=== PATIENT | male | born 1960 | race Caucasian/White ===

== ENCOUNTER 2021-04-13 19:51 | Inpatient (IN) | payer OTHER ==
[2021-04-13] MEDS ORDERED: DIPH,PERTUS(ACELL)TETVAC-LF 0.5 ML VIAL IM ONE (19:56)
[2021-04-13 20:10] LABS: Basophils % (A) 0 %; Eosinophils # (A) 0.1 k/uL (0-0.7); Eosinophils % (A) 2 %; HCT 43.7 % (39.0-53.0); HGB 15.3 gm/dL (13.0-17.5); Lymphocytes # (A) 1.5 k/uL (1.0-4.8); Lymphocytes % (A) 23 %; MCH 32.9 pg (25.0-35.0); MCHC 35.1 g/dL (31.0-37.0); MCV 93.7 fL (80.0-100.0); Mean Platelet Volume 7.1; Monocytes # (A) 0.3 k/uL (0-1.0); Monocytes % (A) 5 %; Neutrophils # (A) 4.4 k/uL (1.3-7.7); Neutrophils % (A) 68 %; Platelet Count 157 k/uL (150-450); RBC 4.66 m/uL (4.30-5.90); RDW 13.3 % (11.5-15.5); WBC 6.6 k/uL (3.8-10.6)
[2021-04-13 20:13] LABS: Glucose,Whole Blood 169 mg/dL (75-99)
[2021-04-13] MEDS ORDERED: HYDROmorphone 1 MG/ML 1 ML SYRINGE IVP STA (20:13)
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
[2021-04-13 20:23] LABS: ALT 29 U/L (4-49); AST 47 U/L (17-59); African American GFR (CKD) >90 (>60 ml/min/1.73 sqM); Alcohol <10 mg/dL; Alkaline Phosphatase 115 U/L (38-126); Anion Gap 10 mmol/L; Blood Urea Nitrogen 20 mg/dL (9-20); Calcium 8.9 mg/dL (8.4-10.2); Carbon Dioxide 25 mmol/L (22-30); Chloride 107 mmol/L (98-107); Glucose 179 mg/dL (74-99); Non-African American GFR(CKD) >90 (>60 ml/min/1.73 sqM); Potassium 4.1 mmol/L (3.5-5.1); Sodium 142 mmol/L (137-145); Total Bilirubin 1.5 mg/dL (0.2-1.3); Total Protein 6.6 g/dL (6.3-8.2)
[2021-04-13 20:31] LABS: INR 0.9 (<1.2); Prothrombin Time 10.3 sec (9.0-12.0)
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
[2021-04-13 21:06] LABS: Partial Thromboplastin Time 21.9 sec (22.0-30.0)
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
[2021-04-13] MEDS ORDERED: SODIUM CHLORIDE 0.9% 1,000 ML IV STA (21:34)
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
[2021-04-13] MEDS ORDERED: LIDOCAINE 1% INJ 10MG/ML (20 ML MDV) SQ ONE (23:34)
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
[2021-04-14] MEDS ORDERED: NALOXONE 0.4 MG/ML 1 ML VIAL IV PRN ×2 (00:03→00:45)
[2021-04-14] MEDS ORDERED: ONDANSETRON 4 MG/2 ML VIAL IVP PRN (00:03)
[2021-04-14] MEDS: SODIUM CHLORIDE 0.9% 1,000 ML IV SCH ×3 (02:00→20:51)
[2021-04-14] MEDS: HYDROmorphone 1 MG/ML 1 ML SYRINGE IVP PRN ×4 (02:00→23:54)
[2021-04-14 03:25] LABS: Appearance,Urine Clear (Clear); Bacteria,Urine Rare /hpf; Bilirubin,Urine Negative (Negative); Blood,Urine Small (Negative); Color,Urine Yellow; Glucose,Urine (UA) 1+ (Negative); Leukocyte Esterase,Urine Negative (Negative); Nitrite,Urine Negative (Negative); PH, Urine 5.5 (5.0-8.0); Protein,Urine 2+ (Negative); RBC,Urine 2 /hpf (0-5); Urobilinogen,Urine <2.0 mg/dL (<2.0); WBC,Urine 1 /hpf (0-5)
[2021-04-14 03:26] LABS: Amphetamine Screen,Urine Not Detected (NotDetected); Barbiturate Screen,Urine Not Detected (NotDetected); Benzodiazepines Screen,Urine Not Detected (NotDetected); Cocaine Screen,Urine Not Detected (NotDetected); Methadone Screen, Urine Not Detected (NotDetected); Opiate Screen,Urine Detected (NotDetected); Oxycodone Screen, Urine Not Detected (NotDetected); Phencyclidine Screen,Urine Not Detected (NotDetected); Tricyclic Antidepressant,Urine Not Detected (NotDetected); Urn Cannabinoid Scrn Not Detected (NotDetected)
[2021-04-14 04:00] LABS: Specific Gravity,Urine >1.050 (1.001-1.035)
[2021-04-14 04:09] LABS: Ketones,Urine 2+ (Negative)
[2021-04-14 06:31] LABS: Glucose,Whole Blood 294 mg/dL (75-99)
[2021-04-14 07:10] LABS: Basophils % (A) 0 %; Eosinophils % (A) 0 %; HGB 14.1 gm/dL (13.0-17.5); Lymphocytes # (A) 0.4 k/uL (1.0-4.8); Lymphocytes % (A) 5 %; MCH 32.2 pg (25.0-35.0); MCHC 33.6 g/dL (31.0-37.0); MCV 95.9 fL (80.0-100.0); Mean Platelet Volume 7.1; Monocytes # (A) 0.4 k/uL (0-1.0); Monocytes % (A) 5 %; Neutrophils % (A) 90 %; Platelet Count 121 k/uL (150-450); RBC 4.38 m/uL (4.30-5.90); RDW 13.5 % (11.5-15.5); WBC 8.9 k/uL (3.8-10.6)
[2021-04-14 07:20] LABS: ALT 28 U/L (4-49); AST 42 U/L (17-59); African American GFR (CKD) >90 (>60 ml/min/1.73 sqM); Albumin 3.5 g/dL (3.5-5.0); Alkaline Phosphatase 90 U/L (38-126); Anion Gap 9 mmol/L; Blood Urea Nitrogen 18 mg/dL (9-20); Calcium 8.4 mg/dL (8.4-10.2); Carbon Dioxide 24 mmol/L (22-30); Chloride 108 mmol/L (98-107); Glucose 245 mg/dL (74-99); Lipase 134 U/L (23-300); Non-African American GFR(CKD) >90 (>60 ml/min/1.73 sqM); Potassium 4.4 mmol/L (3.5-5.1); Sodium 141 mmol/L (137-145); Total Bilirubin 1.8 mg/dL (0.2-1.3); Total Protein 6.1 g/dL (6.3-8.2)
[2021-04-14] MEDS ORDERED: PANTOPRAZOLE 40 MG/10 ML VIAL IV SCH (09:00)
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
[2021-04-14] MEDS ORDERED: IBUPROFEN 600 MG TAB PO PRN (09:18)
[2021-04-14] MEDS: METOPROLOL SUCCINATE (ER) 25 MG TAB.ER.24H PO SCH ×2 (09:21→20:50)
[2021-04-14] MEDS: lisinopriL 10 MG TAB PO SCH ×2 (09:21→20:50)
[2021-04-14] MEDS: HEPARIN SODIUM,PORCINE/PF 5,000 UNIT/0.5 ML SYRINGE SQ SCH ×3 (09:21→23:54)
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
[2021-04-14 11:42] LABS: Glucose,Whole Blood 201 mg/dL (75-99)
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
[2021-04-14 16:49] LABS: Glucose,Whole Blood 165 mg/dL (75-99)
[2021-04-14] MEDS: ATORVASTATIN 40 MG TAB PO SCH (17:30)
[2021-04-14 20:18] LABS: Glucose,Whole Blood 174 mg/dL (75-99)
[2021-04-14] MEDS: FAMOTIDINE 20 MG TAB PO SCH (20:50)
[2021-04-14] MEDS: HYDROcodone/APAP 5-325MG 1 EACH TAB PO PRN (23:55)
[2021-04-15] MEDS: SODIUM CHLORIDE 0.9% 1,000 ML IV SCH ×2 (02:29→11:57)
[2021-04-15 05:14] LABS: Glucose,Whole Blood 149 mg/dL (75-99)
[2021-04-15 08:32] LABS: Basophils % (A) 0 %; Eosinophils % (A) 0 %; HCT 38.1 % (39.0-53.0); Lymphocytes # (A) 0.5 k/uL (1.0-4.8); Lymphocytes % (A) 6 %; MCH 32.6 pg (25.0-35.0); MCHC 34.2 g/dL (31.0-37.0); MCV 95.4 fL (80.0-100.0); Mean Platelet Volume 7.3; Monocytes # (A) 0.4 k/uL (0-1.0); Monocytes % (A) 4 %; Neutrophils # (A) 7.8 k/uL (1.3-7.7); Neutrophils % (A) 89 %; RDW 13.4 % (11.5-15.5); WBC 8.8 k/uL (3.8-10.6)
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
[2021-04-15 08:39] LABS: African American GFR (CKD) >90 (>60 ml/min/1.73 sqM); Anion Gap 4 mmol/L; Blood Urea Nitrogen 15 mg/dL (9-20); Calcium 8.2 mg/dL (8.4-10.2); Carbon Dioxide 24 mmol/L (22-30); Chloride 109 mmol/L (98-107); Glucose 153 mg/dL (74-99); Non-African American GFR(CKD) >90 (>60 ml/min/1.73 sqM); Sodium 137 mmol/L (137-145)
[2021-04-15] MEDS: lisinopriL 10 MG TAB PO SCH ×2 (09:46→20:45)
[2021-04-15] MEDS: DOCUSATE 100 MG CAP PO SCH (09:46)
[2021-04-15] MEDS: HEPARIN SODIUM,PORCINE/PF 5,000 UNIT/0.5 ML SYRINGE SQ SCH (09:46)
[2021-04-15] MEDS: FAMOTIDINE 20 MG TAB PO SCH ×2 (09:47→20:45)
[2021-04-15] MEDS: METOPROLOL SUCCINATE (ER) 25 MG TAB.ER.24H PO SCH ×2 (09:47→20:45)
[2021-04-15] MEDS: PANTOPRAZOLE 40 MG TABLET PO SCH (09:47)
[2021-04-15 10:00] LABS: Platelet Count 93 k/uL (150-450)
[2021-04-15 10:01] LABS: RBC Morphology Normal
--- NOTE | 2021-04-15 10:45 | XR ---
EXAMINATION TYPE: XR chest 1V portable DATE OF EXAM: 04/15/2021 COMPARISON: Chest x-ray and CT 04/13/2021 HISTORY: Redness of breath TECHNIQUE: Single frontal view of the chest is obtained. FINDINGS: Exam is stable. Elevated right hemidiaphragm is noted. There is no pneumothorax or pleural effusion, no evident airspace disease. Some minimal atelectatic changes or scarring present in the u pper lobes noted. Cardiomediastinal silhouette is stable. Patient is rotated. Rib fractures seen on C T are not seen on plain film. Calcified left ventricular apex also not well seen on plain film as on CT. IMPRESSION: Probable atelectatic changes. Additional findings above.
--- NOTE | 2021-04-15 11:37 | ECHOF ---
Referral Reason:LV function MEASUREMENTS -------- HEIGHT: 165.1 cm WEIGHT: 68.0 kg BP: IVSd: 0.8 cm (0.6 - 1.1) LVIDd: 5.8 cm (3.9 - 5.3) LVPWd: 1.0 cm (0.6 - 1.1) IVSs: 1.0 cm LVIDs: 4.7 cm LVPWs: 1.4 cm LAESV Index (A-L): 43.20 ml/m Ao Diam: 2.6 cm (2.0 - 3.7) AV Cusp: 1.6 cm (1.5 - 2.6) MV EXCURSION: 18.162 mm (> 18.000) MV EF SLOPE: 396 mm/s (70 - 150) EPSS: 1.8 cm FINDINGS -------- Sinus rhythm. This was a technically difficult study with suboptimal apical views. The left ventricular size is normal. Left ventricular wall thickness is normal. Overall left vent ricular systolic function is moderately impaired with, an EF between 35 - 40 %. Apical anterior LV wall motion is hypokinetic. Apical lateral LV wall motion is hypokinetic. Apical inferior LV wa ll motion is hypokinetic. Apical septum LV wall motion is hypokinetic. The RV was not well visualized. LA is severely dilated >40 ml/m2 The right atrial size is normal. 5.0mg of Lumason was utilized for enhancement of images Interatrial and interventricular septum intact. The aortic valve is trileaflet and appears structurally normal. There is mild aortic valve sclerosi s. There is no evidence of aortic regurgitation. There is no evidence of aortic stenosis. Mild mitral regurgitation is present. Mild tricuspid regurgitation present. There is no pulmonic regurgitation present. The mass is located in the apical portion of the left ventricle.Could be organized thrombus. There is no pericardial effusion. CONCLUSIONS -------- 1. The left ventricular size is normal. 2. Left ventricular wall thickness is normal. 3. Overall left ventricular systolic function is moderately impaired with, an EF between 35 - 40 %. 4. Apical anterior LV wall motion is hypokinetic. 5. Apical lateral LV wall motion is hypokinetic. 6. Apical inferior LV wall motion is hypokinetic. 7. Apical septum LV wall motion is hypokinetic. 8. LA is severely dilated >40 ml/m2 9. There is mild aortic valve sclerosis. 10. Mild mitral regurgitation is present. 11. Mild tricuspid regurgitation present. 12. The mass is located in the apical portion of the left ventricle.Could be organized throbus. TIRE DEBEADER: Arminda Telles RDCS
[2021-04-15 11:40] LABS: Glucose,Whole Blood 210 mg/dL (75-99)
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
[2021-04-15 16:19] LABS: Glucose,Whole Blood 188 mg/dL (75-99)
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
[2021-04-15] MEDS: APIXABAN 5 MG TAB PO SCH ×2 (16:34→20:59)
[2021-04-15] MEDS ORDERED: FUROSEMIDE 10 MG/ML 2 ML VIAL IV STA (17:00)
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
[2021-04-15] MEDS: ATORVASTATIN 40 MG TAB PO SCH (17:41)
[2021-04-15 20:05] LABS: Glucose,Whole Blood 225 mg/dL (75-99)
[2021-04-15] MEDS: HYDROcodone/APAP 5-325MG 1 EACH TAB PO PRN (20:45)
[2021-04-15] MEDS: HYDROmorphone 1 MG/ML 1 ML SYRINGE IVP PRN (20:45)
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
[2021-04-16] MEDS: HYDROmorphone 1 MG/ML 1 ML SYRINGE IVP PRN ×2 (00:32→03:59)
[2021-04-16] MEDS: HYDROcodone/APAP 5-325MG 1 EACH TAB PO PRN ×2 (06:11→17:05)
[2021-04-16] MEDS: PANTOPRAZOLE 40 MG TABLET PO SCH (06:11)
[2021-04-16 06:44] LABS: Basophils % (A) 1 %; Eosinophils # (A) 0.1 k/uL (0-0.7); Eosinophils % (A) 1 %; HCT 35.2 % (39.0-53.0); Lymphocytes % (A) 12 %; MCH 32.4 pg (25.0-35.0); MCHC 34.2 g/dL (31.0-37.0); MCV 94.8 fL (80.0-100.0); Mean Platelet Volume 7.8; Monocytes # (A) 0.6 k/uL (0-1.0); Monocytes % (A) 7 %; Neutrophils # (A) 6.9 k/uL (1.3-7.7); Neutrophils % (A) 78 %; RBC 3.71 m/uL (4.30-5.90); WBC 8.7 k/uL (3.8-10.6)
[2021-04-16 06:48] LABS: Platelet Count 95 k/uL (150-450)
[2021-04-16 06:59] LABS: Calcium 8.1 mg/dL (8.4-10.2); Potassium 4.1 mmol/L (3.5-5.1)
--- NOTE | 2021-04-16 08:47 | XR ---
EXAMINATION TYPE: XR chest 1V portable DATE OF EXAM: 04/16/2021 COMPARISON: Chest x-ray 04/15/2021 HISTORY: Shortness of breath TECHNIQUE: Single frontal view of the chest is obtained. FINDINGS: There is no focal air space opacity, pleural effusion, or pneumothorax seen. The cardiac silhouette size is stable accounting for differences in technique. Aorta is dense. There are overlyi ng leads. Right hemidiaphragm remains elevated. The osseous structures are intact. IMPRESSION: No acute process., Consider follow-up PA and lateral chest x-ray as indicated
[2021-04-16] MEDS: lisinopriL 10 MG TAB PO SCH ×2 (10:09→20:28)
[2021-04-16] MEDS: DOCUSATE 100 MG CAP PO SCH (10:09)
[2021-04-16] MEDS: APIXABAN 5 MG TAB PO SCH ×2 (10:09→20:28)
[2021-04-16] MEDS: FAMOTIDINE 20 MG TAB PO SCH ×2 (10:09→20:28)
[2021-04-16] MEDS: METOPROLOL SUCCINATE (ER) 25 MG TAB.ER.24H PO SCH ×2 (10:10→20:28)
[2021-04-16 11:43] LABS: Glucose,Whole Blood 143 mg/dL (75-99)
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
[2021-04-16 16:25] LABS: Glucose,Whole Blood 158 mg/dL (75-99)
[2021-04-16] MEDS: ATORVASTATIN 40 MG TAB PO SCH (17:05)
[2021-04-16 19:51] LABS: Glucose,Whole Blood 195 mg/dL (75-99)
[2021-04-16] MEDS: INSULIN ASPART (NovoLOG) 100 UNIT/ML VIAL SQ SCH (20:28)
[2021-04-16] MEDS: ACETAMINOPHEN TAB 325 MG TAB PO PRN (20:29)
[2021-04-17] MEDS: HYDROcodone/APAP 5-325MG 1 EACH TAB PO PRN ×2 (03:30→21:31)
[2021-04-17 06:10] LABS: Glucose,Whole Blood 106 mg/dL (75-99)
[2021-04-17] MEDS: INSULIN ASPART (NovoLOG) 100 UNIT/ML VIAL SQ SCH ×4 (06:17→21:31)
[2021-04-17] MEDS: PANTOPRAZOLE 40 MG TABLET PO SCH (06:21)
[2021-04-17 07:39] LABS: Calcium 8.6 mg/dL (8.4-10.2); Magnesium 1.7 mg/dL (1.6-2.3); Potassium 3.7 mmol/L (3.5-5.1)
[2021-04-17] MEDS: APIXABAN 5 MG TAB PO SCH ×2 (09:22→21:30)
[2021-04-17] MEDS: lisinopriL 10 MG TAB PO SCH (09:22)
[2021-04-17] MEDS: METOPROLOL SUCCINATE (ER) 25 MG TAB.ER.24H PO SCH ×2 (09:22→21:31)
[2021-04-17] MEDS: ACETAMINOPHEN TAB 325 MG TAB PO PRN (09:22)
[2021-04-17] MEDS: DOCUSATE 100 MG CAP PO SCH (09:22)
[2021-04-17] MEDS: FAMOTIDINE 20 MG TAB PO SCH ×2 (09:23→21:31)
[2021-04-17] MEDS ORDERED: SODIUM CHLORIDE 0.9% 1,000 ML IV ONE (09:48)
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
[2021-04-17 11:38] LABS: Glucose,Whole Blood 149 mg/dL (75-99)
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
[2021-04-17 16:26] LABS: Glucose,Whole Blood 179 mg/dL (75-99)
[2021-04-17] MEDS: ATORVASTATIN 40 MG TAB PO SCH (17:25)
[2021-04-17] MEDS: HYDROmorphone 1 MG/ML 1 ML SYRINGE IVP PRN (17:25)
[2021-04-17 20:14] LABS: Glucose,Whole Blood 162 mg/dL (75-99)
[2021-04-17] MEDS: SODIUM CHLORIDE 0.9% 1,000 ML IV SCH ×2 (21:32→23:16)
[2021-04-18] MEDS: HYDROmorphone 1 MG/ML 1 ML SYRINGE IVP PRN (02:35)
[2021-04-18 06:10] LABS: Glucose,Whole Blood 134 mg/dL (75-99)
[2021-04-18] MEDS: INSULIN ASPART (NovoLOG) 100 UNIT/ML VIAL SQ SCH ×4 (06:24→20:12)
[2021-04-18] MEDS: PANTOPRAZOLE 40 MG TABLET PO SCH (06:24)
[2021-04-18 06:57] LABS: Basophils % (A) 1 %; Eosinophils # (A) 0.1 k/uL (0-0.7); Eosinophils % (A) 2 %; HCT 37.1 % (39.0-53.0); HGB 11.5 gm/dL (13.0-17.5); Hypochromasia Moderate; Lymphocytes # (A) 0.5 k/uL (1.0-4.8); Lymphocytes % (A) 11 %; MCH 31.4 pg (25.0-35.0); MCHC 30.9 g/dL (31.0-37.0); Macrocytosis Slight; Monocytes # (A) 0.5 k/uL (0-1.0); Monocytes % (A) 10 %; Neutrophils # (A) 3.7 k/uL (1.3-7.7); Neutrophils % (A) 75 %; Platelet Count 128 k/uL (150-450); RBC 3.66 m/uL (4.30-5.90); RDW 13.6 % (11.5-15.5)
[2021-04-18 06:59] LABS: MCV 101.5 fL (80.0-100.0)
[2021-04-18 07:13] LABS: African American GFR (CKD) >90 (>60 ml/min/1.73 sqM); Anion Gap 6 mmol/L; Blood Urea Nitrogen 19 mg/dL (9-20); Calcium 8.2 mg/dL (8.4-10.2); Carbon Dioxide 24 mmol/L (22-30); Chloride 109 mmol/L (98-107); Glucose 126 mg/dL (74-99); Non-African American GFR(CKD) >90 (>60 ml/min/1.73 sqM); Potassium 3.7 mmol/L (3.5-5.1); Sodium 139 mmol/L (137-145)
[2021-04-18] MEDS: APIXABAN 5 MG TAB PO SCH ×2 (07:58→20:15)
[2021-04-18] MEDS: METOPROLOL SUCCINATE (ER) 25 MG TAB.ER.24H PO SCH ×2 (07:58→20:15)
[2021-04-18] MEDS: FAMOTIDINE 20 MG TAB PO SCH ×2 (07:58→20:15)
[2021-04-18] MEDS: DOCUSATE 100 MG CAP PO SCH (07:59)
--- NOTE | 2021-04-18 08:00 | XR ---
EXAMINATION TYPE: XR chest 1V portable DATE OF EXAM: 04/18/2021 COMPARISON: Chest x-ray 04/16/2021 HISTORY: Rib fractures, hypoxemia TECHNIQUE: Single frontal view of the chest is obtained. FINDINGS: No interval change. IMPRESSION: Stable exam. Patient's rib fractures not well seen. No evident pneumothorax or pleural e ffusion. There is persistent elevation of the right hemidiaphragm, the heart is enlarged. Technique i s apical lordotic and rotated.
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
[2021-04-18 11:41] LABS: Glucose,Whole Blood 132 mg/dL (75-99)
[2021-04-18] MEDS: lisinopriL 10 MG TAB PO SCH (11:45)
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
[2021-04-18 16:54] LABS: Glucose,Whole Blood 218 mg/dL (75-99)
[2021-04-18] MEDS: ATORVASTATIN 40 MG TAB PO SCH (17:20)
[2021-04-18] MEDS: HYDROcodone/APAP 5-325MG 1 EACH TAB PO PRN (17:20)
[2021-04-18 20:02] LABS: Glucose,Whole Blood 104 mg/dL (75-99)
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
[2021-04-19 06:07] LABS: Glucose,Whole Blood 118 mg/dL (75-99)
[2021-04-19] MEDS: INSULIN ASPART (NovoLOG) 100 UNIT/ML VIAL SQ SCH ×4 (06:25→21:28)
[2021-04-19] MEDS: PANTOPRAZOLE 40 MG TABLET PO SCH (06:28)
[2021-04-19 07:58] LABS: African American GFR (CKD) >90 (>60 ml/min/1.73 sqM); Anion Gap 7 mmol/L; Blood Urea Nitrogen 13 mg/dL (9-20); Calcium 8.1 mg/dL (8.4-10.2); Carbon Dioxide 26 mmol/L (22-30); Chloride 105 mmol/L (98-107); Glucose 116 mg/dL (74-99); Non-African American GFR(CKD) >90 (>60 ml/min/1.73 sqM); Potassium 3.6 mmol/L (3.5-5.1); Sodium 138 mmol/L (137-145)
[2021-04-19] MEDS: DOCUSATE 100 MG CAP PO SCH (08:27)
[2021-04-19] MEDS: APIXABAN 5 MG TAB PO SCH ×2 (08:27→21:28)
[2021-04-19] MEDS: lisinopriL 10 MG TAB PO SCH (08:27)
[2021-04-19] MEDS: FAMOTIDINE 20 MG TAB PO SCH ×2 (08:27→21:28)
[2021-04-19] MEDS: METOPROLOL SUCCINATE (ER) 25 MG TAB.ER.24H PO SCH ×2 (08:27→21:27)
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
[2021-04-19 11:32] LABS: Glucose,Whole Blood 213 mg/dL (75-99)
[2021-04-19 13:12] VITALS: BMI 25.0
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
[2021-04-19 16:51] LABS: Glucose,Whole Blood 186 mg/dL (75-99)
[2021-04-19] MEDS: ATORVASTATIN 40 MG TAB PO SCH (17:33)
[2021-04-19 20:10] LABS: Glucose,Whole Blood 238 mg/dL (75-99)
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
[2021-04-20 06:11] LABS: Glucose,Whole Blood 165 mg/dL (75-99)
[2021-04-20] MEDS: INSULIN ASPART (NovoLOG) 100 UNIT/ML VIAL SQ SCH ×4 (06:35→21:57)
[2021-04-20] MEDS: PANTOPRAZOLE 40 MG TABLET PO SCH (06:35)
[2021-04-20] MEDS: DOCUSATE 100 MG CAP PO SCH (10:03)
[2021-04-20] MEDS: APIXABAN 5 MG TAB PO SCH ×2 (10:03→21:56)
[2021-04-20] MEDS: FAMOTIDINE 20 MG TAB PO SCH ×2 (10:04→21:56)
[2021-04-20] MEDS: METOPROLOL SUCCINATE (ER) 25 MG TAB.ER.24H PO SCH ×2 (10:04→21:56)
[2021-04-20] MEDS: lisinopriL 10 MG TAB PO SCH (10:04)
--- NOTE | 2021-04-20 10:59 | P.PN ---
Progress Note - Text Progress Note Date: 04/20/21 Patient remained stable. He has no complaints of any significant pain. He denies any abdominal distention. He is awaiting placement ECF. On exam vital signs are stable. Abdomen soft nontender. Extremities remain stable.
[2021-04-20 11:48] LABS: Glucose,Whole Blood 173 mg/dL (75-99)
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
[2021-04-20 16:18] LABS: Glucose,Whole Blood 189 mg/dL (75-99)
[2021-04-20] MEDS: ATORVASTATIN 40 MG TAB PO SCH (16:58)
[2021-04-20 20:18] LABS: Glucose,Whole Blood 165 mg/dL (75-99)
[2021-04-20] MEDS: HYDROcodone/APAP 5-325MG 1 EACH TAB PO PRN (21:57)
[2021-04-21 06:25] LABS: Glucose,Whole Blood 243 mg/dL (75-99)
[2021-04-21] MEDS: INSULIN ASPART (NovoLOG) 100 UNIT/ML VIAL SQ SCH ×4 (06:41→19:53)
[2021-04-21] MEDS: PANTOPRAZOLE 40 MG TABLET PO SCH (06:41)
[2021-04-21] MEDS: lisinopriL 10 MG TAB PO SCH (09:07)
[2021-04-21] MEDS: FAMOTIDINE 20 MG TAB PO SCH ×2 (09:07→20:35)
[2021-04-21] MEDS: DOCUSATE 100 MG CAP PO SCH (09:07)
[2021-04-21] MEDS: METOPROLOL SUCCINATE (ER) 25 MG TAB.ER.24H PO SCH ×2 (09:07→20:35)
[2021-04-21] MEDS: APIXABAN 5 MG TAB PO SCH ×2 (09:07→20:35)
[2021-04-21 09:41] LABS: African American GFR (CKD) >90 (>60 ml/min/1.73 sqM); Anion Gap 6 mmol/L; Blood Urea Nitrogen 10 mg/dL (9-20); Calcium 8.2 mg/dL (8.4-10.2); Carbon Dioxide 26 mmol/L (22-30); Chloride 105 mmol/L (98-107); Glucose 154 mg/dL (74-99); Non-African American GFR(CKD) >90 (>60 ml/min/1.73 sqM); Sodium 137 mmol/L (137-145)
[2021-04-21 09:49] LABS: Basophils # (A) 0.1 k/uL (0-0.2); Basophils % (A) 1 %; Eosinophils # (A) 0.1 k/uL (0-0.7); Eosinophils % (A) 2 %; HGB 11.8 gm/dL (13.0-17.5); Hypochromasia Moderate; Lymphocytes # (A) 0.4 k/uL (1.0-4.8); Lymphocytes % (A) 8 %; MCH 30.8 pg (25.0-35.0); MCHC 30.9 g/dL (31.0-37.0); MCV 99.5 fL (80.0-100.0); Mean Platelet Volume 8.7; Monocytes # (A) 0.4 k/uL (0-1.0); Monocytes % (A) 7 %; Neutrophils # (A) 4.5 k/uL (1.3-7.7); Neutrophils % (A) 81 %; Platelet Count 143 k/uL (150-450); Poikilocytosis Slight; RBC 3.82 m/uL (4.30-5.90); RDW 13.3 % (11.5-15.5); WBC 5.6 k/uL (3.8-10.6)
[2021-04-21 09:52] LABS: Potassium 3.4 mmol/L (3.5-5.1)
--- NOTE | 2021-04-21 11:12 | P.PN ---
Progress Note - Text Progress Note Date: 04/21/21 Patient maintained stable. He has no acute complaints. Vital signs are stable. Abdomen soft. Patient still has mild. bilateral extremity pain. Rare awaiting placement ECF.
[2021-04-21 11:31] LABS: Glucose,Whole Blood 176 mg/dL (75-99)
[2021-04-21] MEDS ORDERED: POTASSIUM CHLORIDE ER 20 MEQ TAB.ER PO STA (14:52)
[2021-04-21 16:39] LABS: Glucose,Whole Blood 182 mg/dL (75-99)
[2021-04-21] MEDS: ATORVASTATIN 40 MG TAB PO SCH (16:42)
[2021-04-21 19:14] LABS: Glucose,Whole Blood 175 mg/dL (75-99)
[2021-04-21] MEDS: HYDROcodone/APAP 5-325MG 1 EACH TAB PO PRN (20:34)
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
[2021-04-22 05:58] LABS: Glucose,Whole Blood 154 mg/dL (75-99)
[2021-04-22] MEDS: PANTOPRAZOLE 40 MG TABLET PO SCH (05:59)
[2021-04-22] MEDS: INSULIN ASPART (NovoLOG) 100 UNIT/ML VIAL SQ SCH ×4 (05:59→19:45)
[2021-04-22] MEDS: METOPROLOL SUCCINATE (ER) 25 MG TAB.ER.24H PO SCH ×2 (08:25→19:45)
[2021-04-22] MEDS: lisinopriL 10 MG TAB PO SCH (08:25)
[2021-04-22] MEDS: FAMOTIDINE 20 MG TAB PO SCH ×2 (08:25→19:45)
[2021-04-22] MEDS: DOCUSATE 100 MG CAP PO SCH (08:25)
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
[2021-04-22 11:47] LABS: Glucose,Whole Blood 212 mg/dL (75-99)
[2021-04-22] MEDS: HYDROcodone/APAP 5-325MG 1 EACH TAB PO PRN (15:23)
[2021-04-22 15:32] LABS: African American GFR (CKD) >90 (>60 ml/min/1.73 sqM); Anion Gap 5 mmol/L; Blood Urea Nitrogen 17 mg/dL (9-20); Calcium 8.6 mg/dL (8.4-10.2); Carbon Dioxide 33 mmol/L (22-30); Chloride 99 mmol/L (98-107); Glucose 166 mg/dL (74-99); Non-African American GFR(CKD) >90 (>60 ml/min/1.73 sqM); Sodium 137 mmol/L (137-145)
[2021-04-22 16:36] LABS: Glucose,Whole Blood 225 mg/dL (75-99)
[2021-04-22] MEDS: ATORVASTATIN 40 MG TAB PO SCH (17:34)
[2021-04-22 19:35] LABS: Glucose,Whole Blood 210 mg/dL (75-99)
--- NOTE | 2021-04-22 19:40 | XR ---
EXAMINATION TYPE: XR knee complete LT DATE OF EXAM: 04/22/2021 7:34 PM INDICATION: Patient age:Male; 61 years old; Reason for study: Follow up patella fracture.; COMPARISON: Radiograph 04/13/2021. TECHNIQUE: The Left knee(s) was examined in 3 projections. FINDINGS: Persistent fracture through the patella with 2 mm distraction which is not significantly changed from prior radiograph. There is knee brace in place. Soft tissue swelling over the anterior a spect of the knee. No new fractures identified. IMPRESSION: 1. Similar acute fracture through the patella with 2 mm distraction.
[2021-04-22] MEDS: APIXABAN 5 MG TAB PO SCH (19:45)
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
[2021-04-23 05:50] LABS: Glucose,Whole Blood 141 mg/dL (75-99)
[2021-04-23] MEDS: INSULIN ASPART (NovoLOG) 100 UNIT/ML VIAL SQ SCH ×4 (06:20→20:54)
[2021-04-23] MEDS: PANTOPRAZOLE 40 MG TABLET PO SCH (06:20)
[2021-04-23] MEDS: FAMOTIDINE 20 MG TAB PO SCH ×2 (08:42→20:53)
[2021-04-23] MEDS: CYANOCOBALAMIN 500 MCG TAB PO SCH (08:42)
[2021-04-23] MEDS: APIXABAN 5 MG TAB PO SCH ×2 (08:42→20:53)
[2021-04-23] MEDS: METOPROLOL SUCCINATE (ER) 25 MG TAB.ER.24H PO SCH ×2 (08:42→20:53)
[2021-04-23] MEDS: DOCUSATE 100 MG CAP PO SCH (08:42)
[2021-04-23] MEDS: lisinopriL 10 MG TAB PO SCH (08:42)
[2021-04-23 09:18] LABS: HCT 37.3 % (39.0-53.0); HGB 12.6 gm/dL (13.0-17.5); MCHC 33.7 g/dL (31.0-37.0); MCV 95.1 fL (80.0-100.0); Mean Platelet Volume 7.8; Platelet Count 202 k/uL (150-450); Poikilocytosis Slight; RBC 3.92 m/uL (4.30-5.90); RDW 13.5 % (11.5-15.5); WBC 5.5 k/uL (3.8-10.6)
[2021-04-23 09:43] LABS: African American GFR (CKD) >90 (>60 ml/min/1.73 sqM); Anion Gap 1 mmol/L; Blood Urea Nitrogen 14 mg/dL (9-20); Calcium 8.6 mg/dL (8.4-10.2); Carbon Dioxide 35 mmol/L (22-30); Chloride 101 mmol/L (98-107); Glucose 152 mg/dL (74-99); Non-African American GFR(CKD) >90 (>60 ml/min/1.73 sqM); Potassium 3.9 mmol/L (3.5-5.1); Sodium 137 mmol/L (137-145)
--- NOTE | 2021-04-23 10:04 | P.PN ---
Subjective Progress Note Date: 04/23/21 This patient is a 61- year old male who orthopedics is following for a left patella fracture and a right lateral talar process fracture and sustentaculum tamar calcaneus fracture. Patient remains inpatient due to issues with placement at discharge. He is immobilized in a bulky Chilel splint on the right lower extremity and a hinged knee brace on the left lower extremity. Patient was evaluated bedside. He states his pain in well-controlled at this time. He has no specific complaints. Objective - Vital Signs Vital signs: Vital Signs Temp 98.5 F 04/23/21 03:25 Pulse 66 04/23/21 03:25 Resp 18 04/23/21 03:25 BP 141/79 04/23/21 03:25 Pulse Ox 95 04/23/21 03:25 Intake & Output 04/22/21 04/23/21 04/23/21 18:59 06:59 18:59 Intake Total 960 Output Total 200 905 300 Balance 760 -905 -300 Intake: Oral 960 Output: Urine 200 905 300 Other: Voiding Method Urinal Urinal # Bowel Movements 1 - Exam On examination, patient is sitting up in bed. On inspection of the right lower extremity, there is a clean, dry, intact bulky Chilel splint in place. The visible portion of the toes are warm and well perfused with brisk capillary refill distally. Patient is able toes appropriately. Healing laceration at the knee. On inspection of the left knee, there is a hinged knee brace intact locked in extension. Mild swelling of the knee. Skin intact. Motor and sensory function intact left lower extremity. Left lower extremity warm and well perfused. Calf non-tender. Dorsalis pedis pulse palpable. - Labs CBC & Chem 7: 04/23/21 08:22 04/23/21 08:22 Labs: Abnormal Lab Results - Last 24 Hours (Table) 04/22/21 04/22/21 04/22/21 Range/Units 11:45 14:33 16:34 RBC (4.30-5.90) m/uL Hgb (13.0-17.5) gm/dL Hct (39.0-53.0) % Carbon Dioxide 33 H (22-30) mmol/L Glucose 166 H (74-99) mg/dL POC Glucose (mg/dL) 212 H 225 H (75-99) mg/dL 04/22/21 04/23/21 04/23/21 Range/Units 19:33 05:49 08:22 RBC 3.92 L (4.30-5.90) m/uL Hgb 12.6 L (13.0-17.5) gm/dL Hct 37.3 L (39.0-53.0) % Carbon Dioxide (22-30) mmol/L Glucose (74-99) mg/dL POC Glucose (mg/dL) 210 H 141 H (75-99) mg/dL 04/23/21 Range/Units 08:22 RBC (4.30-5.90) m/uL Hgb (13.0-17.5) gm/dL Hct (39.0-53.0) % Carbon Dioxide 35 H (22-30) mmol/L Glucose 152 H (74-99) mg/dL POC Glucose (mg/dL) (75-99) mg/dL Assessment and Plan Assessment: Left patella fracture and a right lateral talar process fracture and sustentaculum tamar calcaneus fracture Plan: - No surgical intervention planned at this time. Repeat left knee x-rays show no interval displacement of left patella fracture. Hinged knee brace locked in exte nsion for the left knee. He may weight-bear as tolerated on left lower extremity with his brace on. - Keep bulky Chilel splint in place on the right lower extremity. He should remain nonweightbearing on the right lower extremity. - DVT prophylaxis per admitting team. Per chart, patient takes Eliquis on an outpatient basis. - Patient should follow-up in the office with Dr. Parr in 1 week after discharge for repeat x-rays.
[2021-04-23 11:25] LABS: Glucose,Whole Blood 194 mg/dL (75-99)
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
[2021-04-23] MEDS: HYDROmorphone 1 MG/ML 1 ML SYRINGE IVP PRN (11:59)
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
[2021-04-23 16:36] LABS: Glucose,Whole Blood 212 mg/dL (75-99)
[2021-04-23] MEDS: ATORVASTATIN 40 MG TAB PO SCH (17:45)
[2021-04-23 20:12] LABS: Glucose,Whole Blood 276 mg/dL (75-99)
[2021-04-23] MEDS: HYDROcodone/APAP 5-325MG 1 EACH TAB PO PRN (20:53)
[2021-04-24 06:08] LABS: Glucose,Whole Blood 108 mg/dL (75-99)
[2021-04-24] MEDS: INSULIN ASPART (NovoLOG) 100 UNIT/ML VIAL SQ SCH ×4 (06:32→21:31)
[2021-04-24] MEDS: PANTOPRAZOLE 40 MG TABLET PO SCH (06:35)
[2021-04-24] MEDS: FAMOTIDINE 20 MG TAB PO SCH ×2 (09:02→21:13)
[2021-04-24] MEDS: DOCUSATE 100 MG CAP PO SCH (09:02)
[2021-04-24] MEDS: CYANOCOBALAMIN 500 MCG TAB PO SCH (09:02)
[2021-04-24] MEDS: lisinopriL 10 MG TAB PO SCH (09:02)
[2021-04-24] MEDS: METOPROLOL SUCCINATE (ER) 25 MG TAB.ER.24H PO SCH ×2 (09:02→21:13)
[2021-04-24] MEDS: APIXABAN 5 MG TAB PO SCH ×2 (09:02→21:13)
[2021-04-24] MEDS: HYDROmorphone 1 MG/ML 1 ML SYRINGE IVP PRN (09:07)
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
[2021-04-24 11:40] LABS: Glucose,Whole Blood 174 mg/dL (75-99)
[2021-04-24] MEDS: ATORVASTATIN 40 MG TAB PO SCH (17:39)
[2021-04-24 17:41] LABS: Glucose,Whole Blood 242 mg/dL (75-99)
[2021-04-24 20:12] LABS: Glucose,Whole Blood 181 mg/dL (75-99)
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
[2021-04-24 21:04] VITALS: RESP 16
[2021-04-25 04:39] VITALS: BP 140/83; PULSE 70; TEMP 98.4
[2021-04-25] MEDS: HYDROmorphone 1 MG/ML 1 ML SYRINGE IVP PRN (05:30)
[2021-04-25 07:30] LABS: Glucose,Whole Blood 131 mg/dL (75-99)
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
[2021-04-25] MEDS: lisinopriL 10 MG TAB PO SCH (08:17)
[2021-04-25] MEDS: PANTOPRAZOLE 40 MG TABLET PO SCH (08:17)
[2021-04-25] MEDS: FAMOTIDINE 20 MG TAB PO SCH (08:17)
[2021-04-25] MEDS: DOCUSATE 100 MG CAP PO SCH (08:18)
[2021-04-25] MEDS: METOPROLOL SUCCINATE (ER) 25 MG TAB.ER.24H PO SCH (08:18)
[2021-04-25] MEDS: CYANOCOBALAMIN 500 MCG TAB PO SCH (08:18)
[2021-04-25] MEDS: APIXABAN 5 MG TAB PO SCH (08:18)
[2021-04-25] MEDS: INSULIN ASPART (NovoLOG) 100 UNIT/ML VIAL SQ SCH (08:19)
[2021-04-25] MEDS: HYDROcodone/APAP 5-325MG 1 EACH TAB PO PRN (11:06)
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
== END 2021-04-25 12:01 | DRG 562 ==
LOC: EC 19:51 → 3SCARD 04-14 00:03 → 5NMEDONC 04-24 12:13
PROVIDERS: ADMIT Surgery; ATTEND Surgery
DX: S82.092A Other fracture of left patella, initial encounter for closed fracture (principal); J96.01 Acute respiratory failure with hypoxia; S22.41XA Multiple fractures of ribs, right side, initial encounter for closed fracture; E87.2 Acidosis; I42.9 Cardiomyopathy, unspecified; J98.11 Atelectasis; N17.9 Acute kidney failure, unspecified; S92.001A Unspecified fracture of right calcaneus, initial encounter for closed fracture; S92.141A Displaced dome fracture of right talus, initial encounter for closed fracture; E11.65 Type 2 diabetes mellitus with hyperglycemia; E78.5 Hyperlipidemia, unspecified; E86.0 Dehydration; I10 Essential (primary) hypertension; I48.0 Paroxysmal atrial fibrillation; Z20.822 Contact with and (suspected) exposure to COVID-19; V53.5XXA Driver of pick-up truck or van injured in collision with car, pick-up truck or van in traffic accident, initial encounter; I51.3 Intracardiac thrombosis, not elsewhere classified; N28.1 Cyst of kidney, acquired; S81.011A Laceration without foreign body, right knee, initial encounter; I25.2 Old myocardial infarction; Y92.410 Unspecified street and highway as the place of occurrence of the external cause; Z79.01 Long term (current) use of anticoagulants; Z79.899 Other long term (current) drug therapy; Z87.891 Personal history of nicotine dependence
CPT/HCPCS: 36415; 70450; 70486; 71045; 71260; 72125; 72170; 74177; 80048; 80053; 80306; 80320; 81001; 82607; 82747; 83036; 83605; 83690; 83735; 84484; 85025; 85027; 85610; 85730; 86850; 86900; 86901; 87635; 90471; 90715; 93306; 94760; 96365; 96375; 99291